=== PATIENT | male | born 1985 | race Caucasian/White ===

== ENCOUNTER 2017-01-26 02:00 | Inpatient (IN) | payer OTHER ==
[~2017-01-26] VITALS: Ht 167.6 cm; Wt 81.6 kg
--- NOTE | ~2017-01-26 | PN ---
Unit #: [id number] #: [id number] Patient: ARMAND TOMLINSON [id number] [facility] [address] [place] [address] [id number] I MR#: [id number] NAME: ARMAND TOMLINSON ROOM: 13 Age: 31 Sex: M Admission Date: 01/26/2017 : 1985 Attending Physician: Charles Kwan M.D. Admitting Physician: Charles Kwan M.D. Primary Care Physician: Primary Care Physician Amber SHIPMAN NOTES DATE 01/28/2017 DISCUSSION Mr. Tomlinson is a 31-year-old white male with substance abuse and mood disorder who was seen today and chart was reviewed and case was discussed with the staff. He has been anxious, withdrawn, seclusive to himself and has been exhibiting some persistent depressive symptoms. Meanwhile, he has been taking medications and tolerating them fairly well with no reported side effects. MENTAL STATUS EXAMINATION Young white male who was casually dressed with fair personal hygiene and appears to be in no acute distress or discomfort. He was awake and alert on interaction with intact orientation. His mood was anxious with congruent affect. He denies any suicidal or homicidal ideations. His insight and judgement remains slightly impaired. TREATMENT PLAN 1. Will continue on his current medications and treatment protocol. Will monitor his response to the medications and make further adjustments as needed. 2. Will continue to follow up. Dictated by... Mary Ann Garcia/marcie TD: 01/28/2017 20:21 JOB #: [id number] Unit #: [id number] #: [id number] Patient: ARMAND TOMLINSON JAMARCUSDOLORES PROGRESS NOTES Page 1 of 1 X Charles Kwan MD PROGRESS NOTE
--- NOTE | ~2017-01-26 | PN ---
Unit #: [id number] #: [id number] Patient: ARMAND TOMLINSON [id number] [facility] [address] [place] [address] [id number] MR#: [id number] NAME: ARMAND TOMLINSON ROOM: 13 Age: 31 Sex: M Admission Date: 01/26/2017 : 1985 Attending Physician: Charles Kwan M.D. Admitting Physician: Charles Kwan M.D. Primary Care Physician: Primary Care Physician Amber SHIPMAN NOTES DATE OF SERVICE: 01/27/2017 SUBJECTIVE Mr. Tomlinson is a 31-year-old white male, who was seen today and chart was reviewed, and case was discussed with the staff. He has been anxious, withdrawn, and rather seclusive to himself. Meanwhile, he has been cooperative with treatment recommendations and has been taking medications and tolerating them fairly well with no reported side effects. MENTAL STATUS EXAMINATION Young white male who was casually dressed with fair personal hygiene, appears to be in no acute distress or discomfort. He was awake and alert on interaction with intact orientation. His mood was anxious with a congruent affect. He denies any suicidal or homicidal ideation. His insight and judgment remain slightly impaired. TREATMENT PLAN 1. We will continue on his medications and treatment protocol. We will monitor his response to the medications and make further adjustments as needed. 2. We will continue to follow up. Dictated by... Mary Ann Garcia/ivet TD: 01/28/2017 03:12 JOB #: [id number] JÚNIOR SHIPMAN NOTES Page 1 of 1 X Charles Kwan MD PROGRESS NOTE
--- NOTE | ~2017-01-26 | PN ---
Unit #: [id number] #: [id number] Patient: ARMAND TOMLINSON [id number] [facility] [address] [place] [address] [id number] I MR#: [id number] NAME: ARMAND TOMLINSON ROOM: 13 Age: 31 Sex: M Admission Date: 01/26/2017 : 1985 Attending Physician: Charles Kwan M.D. Admitting Physician: Charles Kwan M.D. Primary Care Physician: Primary Care Physician Amber CALLEJAS PROGRESS NOTES DATE 01/30/2017 DISCUSSION Mr. Tomlinson is a 31-year-old white male with mood disorder who was seen today and chart was reviewed and case was discussed with the staff. He has been anxious, withdrawn and rather seclusive to himself though reports persistent depressive symptoms. Meanwhile, he has been taking medications and tolerating them fairly well with no reported side effects. MENTAL STATUS EXAMINATION Young white male who was casually dressed with fair personal hygiene and appears to be in no acute distress or discomfort. He was awake and alert on interaction with intact orientation. His mood was anxious and depressed with congruent affect. His speech is slow and restricted in content. He denies any current suicidal or homicidal ideations. His insight and judgement remains slightly impaired. TREATMENT PLAN 1. Will continue on his current medications and treatment protocol. Will monitor his response to the medications and make further adjustments as needed. 2. Will continue to follow up. Dictated by... Mary Ann Garcia/marcie TD: 01/30/2017 20:58 JOB #: [id number] Unit #: [id number] #: [id number] Patient: ARMAND TOMLINSON JAMARCUSDOLORES PROGRESS NOTES Page 1 of 1 X Charles Kwan MD PROGRESS NOTE
--- NOTE | ~2017-01-26 | PA ---
Unit #: [id number] #: [id number] Patient: ARMAND TOMLINSON [id number] [facility] [address] [place] [address] [id number] I MR#: [id number] NAME: AMRAND TOMLINSON ROOM: P113 Age: 31 Sex: M Admission Date: 01/26/2017 : 1985 Date of Assessment: 01/26/2017 Attending Physician: Charles Kwan M.D. Admitting Physician: Charles Kwan M.D. Primary Care Physician: Primary Care Physician No PSYCHIATRIC ASSESSMENT DATE OF SERVICE 01/26/2017. IDENTIFYING DATA Mr. Tomlinson is a 31-year-old single white male, who is a resident of [place], [place], and was transferred to from [facility] Emergency Room on a voluntary basis. CHIEF COMPLAINT "Suicidal ideation and plan to walk in front of traffic to ." HISTORY OF PRESENT ILLNESS Mr. Tomlinson is a 31-year-old white male, who took himself to the emergency room reporting suicidal ideation with plan to walk in front of the traffic to hit himself and that he has been off his medication for a month and that he is in need of help and that he sees the patron when he does not get his medication and as such, decompensates fast without the medication and now reports increasing depression, anxiety, irritability, restlessness, inability to function or perform activities of daily living, feelings of hopelessness and helplessness, and suicidal ideations with intent and plan and as such, recommendation for inpatient level of care for safety and stabilization was made and the patient was transferred to us. 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 PAST PSYCHIATRIC HISTORY The patient has had history of inpatient psychiatric hospitalization at [facility] and review of the medical records indicate currently he has been noncompliant with the medication. He is supposed to be on Celexa and Zyprexa, but has been not taking the medication and as such, has been decompensating. PAST MEDICAL HISTORY No acute or chronic medical illnesses. ALLERGIES Promethazine. PERSONAL AND SOCIAL HISTORY A 31-year-old white male, who reports that he lives at home with his Unit #: [id number] #: [id number] Patient: ARMAND TOMLINSON girlfriend and girlfriend's mother and has fairly decent social support system. MENTAL STATUS EXAMINATION Young white male who was casually dressed with fair personal hygiene, appears to be in no acute distress or discomfort. He was awake and alert on interaction with intact orientation to time, place, and person. His mood was anxious and depressed with a congruent affect. His speech was slow and goal directed. He reports having suicidal ideation, but denies any homicidal ideations, and also denies any auditory or visual hallucinations. His insight and judgment remain significantly impaired. DIAGNOSTIC IMPRESSION Psychiatric: Bipolar disorder, most recent episode depressed, recurrent, moderate, without psychotic features. Medical: None. Stressors: Moderate psychosocial stressors. TREATMENT PLAN 1. The patient has presented with history of mood disorder, and has been decompensating and will need inpatient hospitalization for safety and stabilization. We will start him back on his home medications. We will adjust the medications and monitor response. 2. Supportive therapy was provided to the patient. 3. Safe, structured, and nourishing environment will be provided. ESTIMATED LENGTH OF STAY 4 to 5 days. ABILITY TO HELP SELF Limited. WILLINGNESS TO HELP SELF The patient appears to be willing to help self. STRENGTHS 1. Communicative. 2. Cooperative. PROBLEMS 1. Chronic dysphoric symptoms. 2. Poor social support system. DISCHARGE CRITERIA This will be contingent upon the patient's ability to show resolution of his depression and anxiety as well as his ability to stay safe to himself, particularly after discharge from the hospital. Dictated by... Charles Kwan M.D. RAVEN/ivet TD: 01/26/2017 07:42 JOB #: [id number] Unit #: [id number] #: [id number] Patient: ARMAND TOMLINSON PSYCHIATRIC ASSESSMENT Page 1 of 1 X Charles Kwan MD X PSYCHIATRIC ASSESSMENT
--- NOTE | ~2017-01-26 | PN ---
Unit #: [id number] #: [id number] Patient: ARMAND TOMLINSON [id number] [facility] [address] [place] [address] [id number] I MR#: [id number] NAME: ARMAND TOMLINSON ROOM: 13 Age: 31 Sex: M Admission Date: 01/26/2017 : 1985 Attending Physician: Charles Kwan M.D. Admitting Physician: Charles Kwan M.D. Primary Care Physician: Primary Care Physician Amber SHIPMAN NOTES DATE January 31, 2017 DISCUSSION Mr. Tomlinson is a 31-year-old white male, who was seen today and chart was reviewed and the case was discussed with the staff. He has been anxious, withdrawn, and rather seclusive to himself. Meanwhile, he has been cooperative with the treatment recommendations and he has been taking the medications and tolerating them fairly well with no reported side effects. MENTAL STATUS EXAMINATION Young white male, who was casually dressed with fair personal hygiene and appears to be in no acute distress or discomfort. He was awake and alert on interaction with intact orientation. His mood is anxious with a congruent affect. He denies any suicidal or homicidal ideations. His insight and judgment remain slightly impaired. TREATMENT PLAN 1. We will continue him on his current medications and treatment protocol, and will monitor his response to the medications, and make further adjustments as needed. 2. We will continue to followup. Dictated by... Mary Ann Garcia/crystal TD: 02/01/2017 10:02 JOB #: [id number] Unit #: [id number] #: [id number] Patient: ARMAND TOMLINSON JÚNIOR PROGRESS NOTES Page 1 of 1 X Charles Kwan MD PROGRESS NOTE
--- NOTE | ~2017-01-26 | HP ---
Unit #: [id number] #: [id number] Patient: ARMAND TOMLINSON [id number] [facility] [address] [place] [address] [id number] I MR#: [id number] NAME: ARMAND TOMLINSON ROOM: 13 Age: 31 Sex: M Admission Date: 01/26/2017 : 1985 Attending Physician: Charles Kwan M.D. Admitting Physician: Charles Kwan M.D. Primary Care Physician: Primary Care Physician No HISTORY AND PHYSICAL HISTORY OF PRESENT ILLNESS Armand is a 31 year old, admitted to [address] [place] [address], because of his depression and verbalizing wanting to hurt himself. He was just discharged from this facility after treatment for the same. The patient was seen and history and physical, dated 01/18/2017, was reviewed. This is current. No changes. Please see history and physical, dated 01/18/2017. Dictated by... Krissy KellyALazaro-Cathryn. for Mary Ann Flynn/crystal TD: 01/27/2017 05:18 JOB #: [id number] HISTORY AND PHYSICAL Page 1 of X Rosa Titus HISTORY AND PHYSICAL
--- NOTE | ~2017-01-26 | PN ---
Unit #: [id number] #: [id number] Patient: ARMAND TOMLINSON [id number] [facility] [address] [place] [address] [id number] I MR#: [id number] NAME: ARMAND TOMLINSON ROOM: 13 Age: 31 Sex: M Admission Date: 01/26/2017 : 1985 Attending Physician: Charles Kwan M.D. Admitting Physician: Charles Kwan M.D. Primary Care Physician: Primary Care Physician Amber CALLEJAS PROGRESS NOTES DATE 02/01/2017 DISCUSSION Mr. Tomlinson is a 31-year-old, white male who was seen today and chart was reviewed and case was discussed with the staff. He has been anxious, withdrawn and rather seclusive to himself but appears to be doing much better with mood and depression and has been compliant with treatment recommendations. He has been taking the medication and tolerating them fairly well with no reported side effects. MENTAL STATUS EXAM Young white male who was casually dressed with fair personal hygiene, appears to be in no acute distress or discomfort. He was awake and alert on interaction with intact orientation. His mood was anxious with congruent affect. He denies any suicidal or homicidal ideation. Also, denies any auditory or visual hallucinations. His insight and judgement remains slightly impaired. TREATMENT PLAN 1. We will continue him on his current treatment protocol. We will monitor his response to the medication and make further adjustments as needed. 2. We will continue to follow up. Dictated by... Mary Ann Garcia/thaddeus TD: 02/02/2017 04:41 JOB #: [id number] Unit #: [id number] #: [id number] Patient: ARMAND TOMLINSON PROGRESS NOTES Page 1 of 1 X Charles Kwan MD PROGRESS NOTE
--- NOTE | ~2017-01-26 | DS ---
Unit #: [id number] #: [id number] Patient: ARMAND TOMLINSON [id number] [facility] [address] [place] [address] [id number] I MR#: [id number] NAME: ARMAND TOMLINSON ROOM: 13 Age: 31 Sex: M Admission Date: 01/26/2017 : 1985 Discharge Date: 02/02/2017 Attending Physician: Charles Kwan M.D. Primary Care Physician: Primary Care Physician No DISCHARGE SUMMARY IDENTIFYING DATA Mr. Tomlinson is a 31-year-old single white male, who is a resident of [place], [place], and was transferred to us from [facility] Emergency Room on a voluntary basis. DISCHARGE DIAGNOSES Psychiatric: Bipolar disorder, most recent episode depressed, recurrent, moderate, without psychotic features. Medical: None. Stressors: Mild psychosocial stressors. HISTORY OF PRESENT ILLNESS Please see initial psychiatric evaluation for details. PAST PSYCHIATRIC HISTORY Please see initial psychiatric evaluation for details. PAST MEDICAL HISTORY Please see initial psychiatric evaluation for details. HOSPITAL COURSE The [facility] and was oriented to the hospital environment. Routine p.r.n. medications were initiated, and he was started back on his home medications and was given regimen of Celexa and Zyprexa to help with bipolar and depression and was seen to be doing much better and was calm and cooperative and was taking medications regularly and was tolerating them fairly well and was able to show a decent and therapeutic response with improvement in depression and anxiety, and as such, it was decided that he will be discharged home and will continue treatment on an outpatient basis. DISCHARGE MEDICATIONS Zyprexa 10 mg at bedtime for depression and Celexa 20 mg a day for depression. DISCHARGE CONDITION Stable. PROGNOSIS Fair. Dictated by... Unit #: [id number] #: [id number] Patient: ARMAND TOMLINSON Mary Ann Garcia/ivet TD: 02/02/2017 07:22 JOB #: [id number] DISCHARGE SUMMARY Page 1 of 1 X Charles Kwan MD DISCHARGE SUMMARY
--- NOTE | ~2017-01-26 | PN ---
Unit #: [id number] #: [id number] Patient: ARMAND SOSA [id number] [facility] [address] [place] [address] [id number] I MR#: [id number] NAME: ARMAND SOSA ROOM: 13 Age: 31 Sex: M Admission Date: 01/26/2017 : 1985 Attending Physician: Charles Kwan M.D. Admitting Physician: Charles Kwan M.D. Primary Care Physician: Primary Care Physician Amber CALLEJAS PROGRESS NOTES DATE OF SERVICE 01/29/2017 DISCUSSION Mr. Sosa is a 31-year-old white male who was seen today. Chart was reviewed and case was discussed with the staff. He has been anxious, withdrawn, and rather seclusive to himself. Meanwhile, he has been cooperative with the treatment recommendations and tolerating them fairly well with no reported side effects. MENTAL STATUS EXAMINATION Young white male who is casually dressed with fair personal hygiene, appears to be in no acute distress or discomfort. He was awake and alert on interaction with intact orientation. His mood is anxious with congruent affect. He denies any suicidal or homicidal ideations. His insight and judgment remain slightly impaired. TREATMENT PLAN 1. We will continue him on his current medications and treatment protocol. We will monitor his response to the medications and make further adjustments as needed. 2. We will continue to follow up. Dictated by... Charles Kwan M.D. IAA/bzg TD: 01/29/2017 09:19 JOB #: [id number] [facility] PROGRESS NOTES Page 1 of 1 X Charles Kwan MD PROGRESS NOTE
[2017-01-27 09:37] LABS: BASOPHIL# 0.1 X10e3 (0-0.3); BASOPHIL% 0.6 % (0-2.5); EOSINOPHIL# 0.1 X10e3 (0-0.7); HEMATOCRIT 44.2 % (38.0-50.0); HEMOGLOBIN 14.5 gm/dL (13.0-16.0); LYMPHOCYTE# 1.4 X10e3 (1.0-3.5); LYMPHOCYTE% 15.1 % (17.0-45.0); MEAN CELL VOLUME 91.2 FL (83-96); MEAN CORPUSCULAR HGB CONC 32.9 g/dL (30-36); MEAN PLATELET VOLUME 9.3 FL (6.5-11.5); MONOCYTE# 0.5 X10e3 (0-1.0); MONOCYTE% 5.4 % (3.0-12.0); NEUTROPHIL# 7.5 X10e3 (1.5-7.1); NEUTROPHIL% 77.9 % (40-75); PLATELET COUNT 162 X10e3 (140-420); RED BLOOD COUNT 4.85 X10e (3.90-5.60); WHITE BLOOD COUNT 9.6 X10e3 (4.0-10.5)
[2017-01-27 09:51] LABS: DIFF IND NO
[2017-01-27 10:31] LABS: ALBUMIN SERUM 3.5 g/dL (3.5-5.0); BILIRUBIN,TOTAL 0.6 mg/dL (0.2-2.0); BUN/CREATININE RATIO 13.75; CALCIUM SERUM 8.5 mg/dL (8.4-10.2); CREATININE SERUM 0.8 mg/dL (0.6-1.4); GLOM FILT RATE Estimated 119.1 mL/min (>60); POTASSIUM 3.9 mmol/L (3.5-5.1); PROTEIN TOTAL SERUM 5.9 g/dL (6.0-8.3)
== END 2017-02-02 10:10 | DRG 885 ==
LOC: P1S 05:52
PROVIDERS: Psychiatry & Neurology Psychiatry
DX: F31.32 Bipolar disorder, current episode depressed, moderate (principal); R45.851 Suicidal ideations
CPT/HCPCS: 80053; 85025

== ENCOUNTER 2017-02-08 04:00 | Inpatient (IN) | payer OTHER ==
[~2017-02-08] VITALS: Ht 167.6 cm; Wt 81.6 kg
--- NOTE | ~2017-02-08 | PN ---
Unit #: [id number] #: [id number] Patient: ARMAND TOMLINSON [id number] [facility] [address] [place] [address] [id number] I MR#: [id number] NAME: ARMAND TOMLINSON ROOM: [facility] Age: 31 Sex: M Admission Date: 02/08/2017 : 1985 Attending Physician: Cuco Turcios M.D. Admitting Physician: Cuco Turcios M.D. Primary Care Physician: Generic Doctor Not In System [facility] PROGRESS NOTES DATE OF SERVICE: 02/10/2017 DISCUSSION Mr. Medina is a 31-year-old male, seen 02/10/2017. The patient interviewed, chart reviewed, and obtained information from nursing staff. The patient was compliant and cooperative. Mood was sad and dysphoric, labile. The patient was anxious, nervous, but denied any thoughts of harming self or others, eating his breakfast. Complete review of systems unremarkable. MENTAL STATUS EXAMINATION General appearance, the patient dressed casually. Attention span and concentration, fair. Oriented in time, place, and person. Mood and affect, labile. Speech, regular rate. Thought process, goal directed. The patient denied any thoughts of harming self or others, but somewhat anxious, isolative. Recent and remote memory, poor. Insight and judgment, poor. DIAGNOSIS Bipolar mood disorder, not otherwise specified. ASSESSMENT AND PLAN Advised to continue with current medication and therapeutic protocol. If needed, consider further adjustment of medication. Dictated by... Mary Ann Shaw/ivet TD: 02/10/2017 15:24 JOB #: [id number] Unit #: [id number] #: [id number] Patient: ARMAND TOMLINSON [facility] PROGRESS NOTES Page 1 of 1 X Cuco Turcios MD PROGRESS NOTE
--- NOTE | ~2017-02-08 | PA ---
Unit #: [id number] #: [id number] Patient: ARMAND TOMLINSON [id number] [facility] [address] [place] [address] [id number] MR#: [id number] NAME: ARMAND TOMLINSON ROOM: P110 Age: 31 Sex: M Admission Date: 02/08/2017 : 1985 Date of Assessment: Attending Physician: Cuco Turcios M.D. Admitting Physician: Cuco Turcios M.D. Primary Care Physician: Generic Doctor Not In System PSYCHIATRIC ASSESSMENT INFORMANTS The patient reliability, fair informant and chart reliability, good. CHIEF COMPLAINT Depression and suicidal ideation. HISTORY OF PRESENT ILLNESS Mr. Medina is a 31-year-old white male, who had previous admission in 06/2016 and 08/2016, last admission on 01/26/2017 and discharged from [facility] on 02/02/2017. The patient presented to [facility] with suicidal ideation with a plan to jump off the bridge. The patient reported that he has been feeling sad, depressed, and suicidal yesterday due to ongoing issue with the ex-. The patient reported that he has a court date on 03/24/2017 for child support. The patient's ex- is trying to put him in skilled nursing. The patient reported that he is currently homeless and has not been on his medication since leaving [facility] on 02/02/2017. The patient reported hearing voices on a daily basis, sometime telling him to do bad things. The patient denied any homicidal ideation or any substance abuse. Needing inpatient admission at this time for psychiatric stabilization. PAST PSYCHIATRIC HISTORY Remarkable for history of previous admission at [facility] as mentioned above, last admission on 01/26/2017. FAMILY HISTORY AND SOCIAL HISTORY Unremarkable. The patient currently homeless, unemployed, poor support system. MEDICAL HISTORY Unremarkable for any chronic medical illness. Musculoskeletal; muscle strength and tone, no atrophy or abnormal movement. Gait normal. MEDICATION HISTORY The patient is currently on Celexa 20 mg daily for mood symptoms and Zyprexa 10 mg at bedtime for psychosis. ALLERGIES No known drug allergies. SUBSTANCE ABUSE HISTORY History of alcohol use, age of onset 14; marijuana, age of onset 15; and methamphetamine, age of onset 17, but the patient denied any recent use of Unit #: [id number] #: [id number] Patient: ARMAND TOMLINSON any drugs or alcohol. REVIEW OF SYSTEMS HEENT: Eyes, clear. Ears, nose, mouth, and throat; clear. CARDIOVASCULAR: Unremarkable. RESPIRATORY: Unremarkable. GI: Unremarkable. : Unremarkable. SKIN: Unremarkable. LYMPH NODE: Unremarkable. NEUROLOGIC: Unremarkable. ENDOCRINE: Unremarkable. HEMATOLOGIC: Unremarkable. ALLERGIC/IMMUNOLOGIC: Unremarkable. MUSCULOSKELETAL: Muscle strength and tone, no atrophy or abnormal movement. Gait normal. MENTAL STATUS EXAMINATION CONSTITUTIONAL: Measurement of vital signs; temperature 97.7, heart rate 96, respiratory rate 16, and blood pressure 88/51. Height 5 feet 6 inches and weight 180 pounds. GENERAL APPEARANCE: The patient dressed casually. The patient did not show any facial deformity. MUSCULOSKELETAL: Please see above. PSYCHIATRIC EXAMINATION Description of speech; regular rate, normal volume, normal articulation, and coherent. Description of thought process, goal directed. Description of association, intact. Description of abnormal psychotic thinking; the patient denied any hallucination, but suicidal ideation, sad, and depressed. Denied any homicidal ideation. Description of the patient's judgment: Concerning everyday activity, poor. Social situation, poor. Concerning psychiatric condition, poor. Complete mental status examination; oriented in time, place, and person. Recent and remote memory, fair. Attention span and concentration, fair. Language, able to name object and repeat phrases. Fund of knowledge, aware of current event and passive vocabulary intact. Mood and affect, sad and dysphoric. Insight and judgment, fair to poor. ASSETS AND LIABILITIES Assets, the patient is articulate and able to take care of his ADL. Liability, history of depression and multiple treatments. ADMITTING DIAGNOSES Psychiatric: Bipolar mood disorder, recurrent, severe, depressed, F31.9. Secondary diagnosis: Deferred. Medical diagnosis: None. Stressors: Psychosocial stressors. PSYCHIATRIC PLAN AND TREATMENT GOAL AND DISCHARGE PLAN 1. Advised to admit the patient on the inpatient unit. Provide safe, supportive, and structured environment. 2. Ordered labs, UA and UDS. 3. Advised to resume home medication. The patient to attend all the Unit #: [id number] #: [id number] Patient: ARMAND TOMLINSON programing, group therapy, individual therapy, chemical dependency group, and structured milieu. The patient to be monitored for any self-harming behavior. TREATMENT GOAL To attain euthymic mood, gain insight into his problem, and learn coping skills. DISCHARGE PLAN Plan to stabilize the patient and consider followup in outpatient program. ESTIMATED LENGTH OF STAY 3 to 5 days. Dictated by... Mary Ann Shaw/ivet TD: 02/08/2017 18:05 JOB #: [id number] PSYCHIATRIC ASSESSMENT Page 1 of 1 X Cuco Turcios MD X PSYCHIATRIC ASSESSMENT
--- NOTE | ~2017-02-08 | PN ---
Unit #: [id number] #: [id number] Patient: ARMAND TOMLINSON [id number] [facility] [address] [place] [address] [id number] I MR#: [id number] NAME: ARMAND TOMLINSON ROOM: [facility] Age: 31 Sex: M Admission Date: 02/08/2017 : 1985 Attending Physician: Cuco Turcios M.D. Admitting Physician: Cuco Turcios M.D. Primary Care Physician: Generic Doctor Not In System [facility] PROGRESS NOTES DATE 02/11/2017 DISCUSSION Armand is a 31-year-old male seen on 02/11/2017. Patient interviewed. Chart reviewed. Obtained information from nursing staff. Patient was cooperative, redirectable. Patient was appropriate but reported anxiety, depressed mood. Patient reports making progress. Compliant with medication. Eating good, sleeping better, still isolative, guarded. Complete review of system unremarkable. MENTAL STATUS EXAMINATION General appearance, patient dressed casually. Attention span, concentration fair. Oriented in time, place and person. Mood and affect labile. Speech monotone. Thought process concrete. Patient denied any thoughts of harming self or others. Recent and remote memory poor. Insight and judgement poor. DIAGNOSES 1. Major depressive disorder, recurrent, severe. 2. Bipolar mood disorder, recurrent, severe, depressed. ASSESSMENT/PLAN Advised to continue with current medication and therapeutic protocol. If needed, consider further adjustment of medication. Dictated by... Mary Ann Shaw/marcie TD: 02/11/2017 18:25 JOB #: [id number] Unit #: [id number] #: [id number] Patient: AMRAND TOMLINSON [facility] PROGRESS NOTES Page 1 of 1 X Cuco Turcios MD X PROGRESS NOTE
--- NOTE | ~2017-02-08 | PN ---
Unit #: [id number] #: [id number] Patient: ARMAND TOMLINSON [id number] [facility] [address] [place] [address] [id number] I MR#: [id number] NAME: ARMAND TOMLINSON ROOM: [facility] Age: 31 Sex: M Admission Date: 02/08/2017 : 1985 Attending Physician: Cuco Turcios M.D. Admitting Physician: Cuco Turcios M.D. Primary Care Physician: Generic Doctor Not In System [facility] PROGRESS NOTES DATE OF SERVICE 02/09/2017 DISCUSSION Mr. Medina is a 31-year-old male seen on 02/09/2017. The patient interviewed, chart reviewed. Obtained information from nursing staff. The patient compliant, cooperative, but sad, depressed. The patient reported having suicidal ideation, noncompliant with medication. Complete Review of Systems: Unremarkable. MENTAL STATUS EXAMINATION General Appearance: The patient dressed in hospital attire. Attention span, concentration: Fair. Oriented in place and person. Mood and affect: Sad, dysphoric, withdrawn, flat affect. Having suicidal ideation. Able to contract for safety. Recent and remote memory: Poor. Insight and judgment: Poor. DIAGNOSIS Bipolar mood disorder not otherwise specified. ASSESSMENT/PLAN Advised to continue with current medication and therapeutic protocol. If needed, consider further adjustment of medication. Dictated by... Mary Ann Shaw/caitie TD: 02/10/2017 06:47 JOB #: [id number] Unit #: [id number] #: [id number] Patient: ARMAND TOMLINSON [facility] PROGRESS NOTES Page 1 of 1 X Cuco Turcios MD X PROGRESS NOTE
--- NOTE | ~2017-02-08 | DS ---
Unit #: [id number] #: [id number] Patient: ARMAND TOMLINSON [id number] [facility] [address] [place] [address] [id number] I MR#: [id number] NAME: ARMAND TOMLINSON ROOM: [facility] Age: 31 Sex: M Admission Date: 02/08/2017 : 1985 Discharge Date: 02/12/2017 Attending Physician: Cuco Turcios M.D. Primary Care Physician: Generic Doctor Not In System DISCHARGE SUMMARY REASON FOR ADMISSION Depression, suicidal ideation. DIAGNOSTIC STUDIES LABORATORY DATA: Unremarkable. HOSPITAL COURSE The patient was admitted to inpatient unit on February 08 and discharged on 02/12/2017. The patient was treated on the inpatient unit with group therapy, individual therapy, medication management, expressive therapy, structured milieu. The patient was responsive to treatment. Subsequently, the patient was discharged with a plan to follow up in outpatient program. DISCHARGE MEDICATIONS 1. Celexa 20 mg daily for depression. 2. Zyprexa 10 mg at bedtime for mood stabilization. DISCHARGE DIAGNOSES PSYCHIATRIC: Bipolar mood disorder, recurrent, severe, depressed, F31.9 SECONDARY: Deferred. MEDICAL: None. STRESSORS: Psychosocial stressor. FOLLOWUP CARE The patient to follow up in outpatient clinic as per addiction social worker. CONDITION AT DISCHARGE The patient pleasant, cooperative. Denied any psychotic symptom or any suicidal ideation. PROGNOSIS Guarded. DIET AND ACTIVITY As tolerated. Dictated by... Cuco Turcios M.D. SZC/bzg Unit #: [id number] #: [id number] Patient: ARMAND TOMLINSON TD: 02/13/2017 14:24 JOB #: [id number] DISCHARGE SUMMARY Page 1 of 1 X Cuco Turcios MD X DISCHARGE SUMMARY
--- NOTE | ~2017-02-08 | HP ---
Unit #: [id number] #: [id number] Patient: ARMAND TOMLINSON [id number] [facility] [address] [place] [address] [id number] I MR#: [id number] NAME: ARMAND TOMLINSON ROOM: [facility] Age: 31 Sex: M Admission Date: 02/08/2017 : 1985 Attending Physician: Cuco Turcios M.D. Admitting Physician: Cuco Turcios M.D. Primary Care Physician: Generic Doctor Not In System HISTORY AND PHYSICAL Armand is a 31-year-old male admitted on 02/08/[address] [place] [address] for suicidal ideation and auditory hallucinations. He was recently admitted for the same on 01/26/2017. I reviewed the history and physical from that admission and there are no changes. Dictated by... Sangeetha Ferris TD: 02/09/2017 20:07 JOB #: [id number] HISTORY AND PHYSICAL Page 1 of 1 X NILESH PALMER APRN HISTORY AND PHYSICAL
== END 2017-02-12 14:32 | disposition home or self-care (01) | DRG 885 ==
LOC: P1S 13:38 → POF 13:38 → P1S 13:59
DX: F31.4 Bipolar disorder, current episode depressed, severe, without psychotic features (principal); R45.851 Suicidal ideations